=== PATIENT | female | born 1970 | race Caucasian/White ===

== ENCOUNTER 2017-05-24 09:38 | Emergency (ER) | payer OTHER ==
[~2017-05-24] VITALS: Ht 170.2 cm; Wt 104.3 kg
[~2017-05-24 09:38] MED LIST: ACIDOPHILUS1 EACH PO; AMITIZA8 MCG PO; APAP500 PO; BACTRIM DS TAB1 EACH PO; BENTYL 20 MG TA20 M1 PO; BENZONATATE100 MG PO; CELEBREX 200 M200 M1 PO; DEPAKOTE PO; EPIPEN 2-P0.3 MG/0.3 IM; ERYTHROMYCIN250 MG PO; FIORINAL 50-321 EACH PO; FLONASE 0.05%50 MCG; HYDROCODONE-AP1 EAC6 PO; IBUPROFEN 800800 M1 PO; INSULIN PUMP; INVOKANA100 MG PO; LAMICTAL XR100 MG PO; LAMICTAL XR200 MG PO; LITHIUM CARBON300 M7 PO; MEDROLDOSEPACK PO; NORCO 5-325 TA1 EACH PO; NOVOLOG100 UNIT/1 SUBQ; PRILOSEC 20 MG20 MG PO; SERTRALINE HCL50 MG PO; TESSALON PERLE100 MG PO; TRILEPTAL150 MG PO; UNICOMPLEX M TA1 TA1 PO; VENLAFAXIN37.5 MG/1 PER TUBE; VITAMIN D34000 UNIT PO; WELLBUTRIN SR200 MG PO; ZOFRAN ODT4 MG SUBLING; [UNRECOGNIZED DRUG - OTHER]; [UNRECOGNIZED DRUG - OTHER] PO
[2017-05-24] MEDS ORDERED: DEPAKOTE 250MG250 M1 PO (09:50)
[2017-05-24] MEDS ORDERED: VSL#3 CAPSULE1 EACH PO (09:50)
[2017-05-24] MEDS ORDERED: JARDIANCE10 MG PO (09:50)
[2017-05-24] MEDS ORDERED: ACCUNEB SO1.25 MG/1 INH (10:47)
[2017-05-24] MEDS ORDERED: NEBULIZER MISCELL (10:47)
[2017-05-24 10:59] LABS: INFLUENZA A ANTIGEN None Detected (None Detect)
[2017-05-24] MEDS ORDERED: ULTRAM 50MG TAB50 MG PO (11:10)
[2017-05-24] MEDS ORDERED: NAPROSYN500 MG PO (11:10)
[2017-05-24] MEDS ORDERED: Magic mouthwash PO (11:35)
[2017-05-24 11:38] VITALS: BP 114/75
== END 2017-05-24 11:39 | disposition home or self-care (01) ==
LOC: M.ERS 09:38
PROVIDERS: Personal Emergency Response Attendant
DX: J10.1 Influenza due to other identified influenza virus with other respiratory manifestations (principal); F32.9 Major depressive disorder, single episode, unspecified; E11.43 Type 2 diabetes mellitus with diabetic autonomic (poly)neuropathy; K31.84 Gastroparesis; Z79.4 Long term (current) use of insulin; Z90.49 Acquired absence of other specified parts of digestive tract; Z90.711 Acquired absence of uterus with remaining cervical stump; Z98.890 Other specified postprocedural states; Z91.041 Radiographic dye allergy status; Z88.8 Allergy status to other drugs, medicaments and biological substances; Z88.5 Allergy status to narcotic agent; Z91.013 Allergy to seafood

== ENCOUNTER → 2017-07-16 | Outpatient (CLI) | payer OTHER ==
[~2017-07-16] MED LIST changes: +ACCUNEB SO1.25 MG/1 INH; +DEPAKOTE 250MG250 M1 PO; +JARDIANCE10 MG PO; +Magic mouthwash PO; +NAPROSYN500 MG PO; +NEBULIZER MISCELL; +ULTRAM 50MG TAB50 MG PO; +VSL#3 CAPSULE1 EACH PO
== END ==
LOC: M.ULTRA 08:37
DX: R92.8 Other abnormal and inconclusive findings on diagnostic imaging of breast (principal); N63.31 Unspecified lump in axillary tail of the right breast

== ENCOUNTER → 2017-07-27 | Outpatient (CLI) | payer OTHER ==
--- NOTE | 2017-07-27 15:48 | EXE ---
[place] [address] STRESS ECHOCARDIOGRAM Name: KRISTEN DWYERELLE Rasheed Room: [facility]#: [id number] Admission: 07/27/17 Attend Phys: Daniela Parker, Discharge: Date of : 70 Date of Service: 07/27/17 1547 Report #: [id number] THIS REPORT FOR: //name// APPROVED REPORT Study performed: 07/27/2017 11:21:53 Exam: Stress Echocardiogram Indication: Dyspnea Patient Location: Out-Patient Stress Nurse: Radha Abreu RN Supervising Physician: Harrison Lovett MD Status: routine Ht: 5 ft 7 in HR: 100 bpm BP: 135/85 mmHg Medical History Cardiac Risk Factors: DM Procedure The patient underwent an Exercise Stress Test using the Krishna Protocol. Blood pressure, heart rate, and EKG were monitored. An Echocardiogram was performed by chemical production technician in four stages in quad fashion. At peak stress, four selected images were obtained and placed side by side with resting images for comparison. Stress Test Details Stress Test: Exercise stress testing was performed using a Krishna protocol. HR Resting HR: 100 bpm Max Heart Rate (APMHR): 173 bpm Max HR Achieved: 171 bpm Target HR (85% APMHR): 147 bpm % of APMHR: 98 Recovery HR: 115 bpm HR response to stress: Normal HR response to stress BP Resting BP: 135/85 mmHg Max BP: 180/85 mmHg Recovery BP: 123/62 mmHg ECG Resting ECG: Sinus Rhythm, normal EKG [place] [id number] STRESS ECHOCARDIOGRAM Name: DAVID DWYER Room: [facility]#: [id number] Admission: 07/27/17 Attend Phys: Daniela Parker, Discharge: Date of : 70 Date of Service: 07/27/17 1547 Report #: [id number] Stress ECG: Sinus Tachycardia ST Change: None Arrhythmia: None Recovery ECG: Sinus Rhythm, normal EKG Recovery ST Change: None Recovery Arrhythmia: None Clinical Reason for Termination: Dyspnea, Completed protocol Exercise duration: 5 min sec Highest Stage Achieved: Stage 2: 2.5 mph at 12% grade. Exercise capacity: 6.99 METs The patient had limited exercise capacity. The patient completed 5 minutes on the standard Krishna protocol. She achieved target heart rate and this time. Exercise was discontinued due to dyspnea. There was no chest pain. Stress ECG Conclusion The baseline 12-lead electrocardiogram shows sinus rhythm with no significant ST or T wave abnormality. EKGs obtained during and post exercise showed sinus rhythm and sinus tachycardia with no significant Mr. T wave changes when compared to baseline. There were no stress-induced arrhythmias. Pre-Stress Echo The resting Echocardiogram showed normal left ventricular contractility with an estimated Ejection Fraction of about 55-60%. Post-Stress Echo The stress Echocardiogram showed normal left ventricular contractility with an estimated Ejection Fraction of about >70%. Conclusion Clinical Response: Non-ischemic Exercise Capacity: Below Average Stress ECG Response: Non-ischemic Stress Echo Images: Non-ischemic Clinical response nonischemic. Echo response nonischemic. This is a low risk study. Other Information Study Quality: Adequate <Conclusion> [place] [address] STRESS ECHOCARDIOGRAM Name: DAVID DWYER Room: [facility]#: [id number] Admission: 07/27/17 Attend Phys: Daniela Parker, Discharge: Date of : 70 Date of Service: 07/27/17 154 Report #: [id number] Clinical response nonischemic. Echo response nonischemic. This is a low risk study. <ELECTRONICALLY SIGNED> By: Harrison Lovett MD, FACC 07/27/17 1547 154 46 Harrison Lovett MD, FACC /INF
== END ==
LOC: M.CRD 10:34
DX: R06.00 Dyspnea, unspecified (principal); E66.9 Obesity, unspecified; M79.604 Pain in right leg; M79.605 Pain in left leg

== ENCOUNTER → 2017-08-03 | Outpatient (CLI) | payer OTHER ==
--- NOTE | 2017-08-06 12:01 | SLEEP ---
[address] [address] SLEEP STUDY REPORT Name: KRISTEN DWYERELLE Rasheed Room: [facility]#: [id number] Admission: 08/03/17 Attend Phys: MIKE Morley Discharge: Date of : 70 Report #: [id number] THIS REPORT FOR: //name// CC: Ritchie Parker This study has been reviewed in its entirety by a board certified sleep specialist DATE OF SERVICE: 08/03/2017 SPLIT NIGHT POLYSOMNOGRAPHY REPORT REQUESTING PHYSICIAN: Sawyer Parker, nurse practitioner in the office of Dr. Ritchie Arias. A split night polysomnography was performed. Apparently, she has a documented history of obstructive sleep apnea, but is no longer on CPAP. Her weight is 230 pounds. She has an [place] sleepiness scale of 18/24. Has complaints of daytime sleepiness, which is excessive. Restless sleep. The total study time was 415 minutes and total sleep time was 361 minutes. Sleep efficiency overall was 87%. Diagnostic portion of the sleep study was 168 minutes, 143 minutes asleep. Sleep efficiency was 85%. During the diagnostic portion, 12% of the time was spent in REM sleep. During the diagnostic portion, there were total of 3 apneas noted, all of which were central. There were 23 hypopneas. This resulted in a total apnea-hypopnea index of 10.9. However, the apnea/hypopnea index was 14.5 during REM sleep. Sleep time was spent in primarily the supine and prone positions. During the diagnostic portion, she had a total of 56 periodic limb movements with 6 associated with an arousal. This resulted in a PLMS arousal index of 2.5. Lowest observed O2 saturation was 85%. With the abnormalities noted, a CPAP titration was undertaken. Starting pressure of 5 cm of water pressure. This was titrated up to 12 cm. An ending pressure of 12, her apnea-hypopnea index was 1.9. During the treatment portion, she continued to have large number of periodic limb movements was 63 noted, 7 with an arousal. IMPRESSION: 1. Split polysomnography study reveals moderate sleep apnea, also associated with increased periodic limb movements. Use of CPAP at pressure of 12 cm of water pressure appeared to be effective with marked decrease in the [address] [address] SLEEP STUDY REPORT Name: DAVID DWYER Room: [facility]#: [id number] Admission: 08/03/17 Attend Phys: MIKE Morley Discharge: Date of : 70 Report #: [id number] apnea/hypopnea index. Snoring was resolved as well. A ramp of 10 minutes was utilized with the CPAP as well as a C-Flex of 3. Small mask was utilized (Vicente FX Felicia). 2. Elevated body mass index. RECOMMENDATIONS: Would utilize CPAP at above settings. If sleep complaints persist, consider addressing underlying periodic limb movement disorder. <ELECTRONICALLY SIGNED> By: Zainab Wren MD 08/06/17 1201 1009 [id number] Wren MD /nt
== END ==
LOC: M.SLEEPLAB 07-26 21:00
DX: G47.30 Sleep apnea, unspecified (principal); E10.8 Type 1 diabetes mellitus with unspecified complications; E66.9 Obesity, unspecified; F41.8 Other specified anxiety disorders; G89.29 Other chronic pain

== ENCOUNTER 2018-02-25 17:42 | Emergency (ER) | payer OTHER ==
[~2018-02-25] VITALS: Ht 170.2 cm; Wt 104.3 kg
[2018-02-25] MEDS ORDERED: WELLBUTRIN 100100 MG PO (17:54)
[2018-02-25] MEDS ORDERED: ZYRTEC10 M5 PO (17:54)
[2018-02-25 18:27] LABS: INFLUENZA A ANTIGEN None Detected (None Detect); INFLUENZA B ANTIGEN None Detected (None Detect)
[2018-02-25] MEDS ORDERED: ULTRAM 50MG TAB50 MG PO (18:32)
[2018-02-25] MEDS ORDERED: PREDNISONE 10 M10 M1 PO (18:32)
[2018-02-25] MEDS ORDERED: ZPAK PO (18:32)
[2018-02-25 19:12] VITALS: BP 129/74
== END 2018-02-25 19:12 | disposition home or self-care (01) ==
LOC: M.ERS 17:42
PROVIDERS: Nurse Practitioner
DX: J03.90 Acute tonsillitis, unspecified (principal); E11.9 Type 2 diabetes mellitus without complications; F32.9 Major depressive disorder, single episode, unspecified; Z91.041 Radiographic dye allergy status; Z88.5 Allergy status to narcotic agent; Z88.8 Allergy status to other drugs, medicaments and biological substances; Z91.013 Allergy to seafood; Z90.49 Acquired absence of other specified parts of digestive tract; Z90.711 Acquired absence of uterus with remaining cervical stump

== ENCOUNTER → 2018-04-29 | Outpatient (CLI) | payer OTHER ==
[~2018-04-29] MED LIST changes: +PREDNISONE 10 M10 M1 PO; +WELLBUTRIN 100100 MG PO; +ZPAK PO; +ZYRTEC10 M5 PO
== END ==
LOC: M.CT 11:11
DX: R20.2 Paresthesia of skin (principal); R20.0 Anesthesia of skin; M62.838 Other muscle spasm

== ENCOUNTER → 2018-07-08 | Outpatient (CLI) | payer OTHER ==
[2018-07-08 14:03] LABS: ABSOLUTE EOSINOPHILS 0.1 thou/uL (0.0-0.7); ABSOLUTE MONOCYTES 0.4 thou/uL (0.0-1.2); ABSOLUTE NEUTROPHILS 4.2 thou/uL (1.6-8.1); BASOPHILS 0.6 %; EOSINOPHILS 1.9 %; MCHC 33.3 g/dL (28.0-37.0); MCV 90.1 fL (80.0-100.0); MONOCYTES 5.9 %; MPV 8.7 fl. (7.2-11.1); NUCLEATED RBCS 0 /100WBC; PLATELET COUNT* 285 thou/uL (150-400); POLYS 61.6 %; RBC 4.67 mil/uL (4.20-5.00); RDW-CV 13.5 % (10.5-14.5); WBC 6.7 thou/uL (4.0-11.0)
[2018-07-08 14:22] LABS: ALBUMIN 3.4 g/dL (3.4-5.0); CALCIUM 8.9 mg/dL (8.5-10.1); CREATININE 0.8 mg/dL (0.6-1.3); POTASSIUM 3.9 mmol/L (3.5-5.1); TOTAL BILIRUBIN 0.3 mg/dL (<0.1-1.0); TOTAL PROTEIN 7.4 g/dL (6.4-8.2)
[2018-07-09 02:10] LABS: GLYCOHEMOGLOBIN (HGB A1C) 9.8 % (4.8-5.6)
== END ==
LOC: M.LAB 13:36
PROVIDERS: Nurse Practitioner
DX: E66.9 Obesity, unspecified (principal); E11.43 Type 2 diabetes mellitus with diabetic autonomic (poly)neuropathy; K31.84 Gastroparesis; R11.0 Nausea; Z68.39 Body mass index [BMI] 39.0-39.9, adult

== ENCOUNTER 2018-09-18 15:15 | Emergency (ER) | payer OTHER ==
[~2018-09-18] VITALS: Ht 170.2 cm; Wt 104.3 kg
[2018-09-18] MEDS ORDERED: TRULANCE3 MG PO (15:29)
[2018-09-18] MEDS ORDERED: OMEPRAZOLE10 MG PO (15:30)
[2018-09-18] MEDS ORDERED: ONDANSETRON HCL4 M2 PO (15:30)
[2018-09-18] MEDS ORDERED: JARDIANCE25 MG PO (15:30)
[2018-09-18] MEDS ORDERED: FLONASE 0.05%50 MCG NASAL (15:31)
[2018-09-18] MEDS ORDERED: NABUMETONE 500500 M1 PO (15:31)
[2018-09-18] MEDS ORDERED: PROAIR HFA8.5 GM INH (16:31)
[2018-09-18] MEDS ORDERED: LEVAQUIN 500 M500 M2 PO (16:31)
[2018-09-18] MEDS ORDERED: PROMETHAZINE V120 ML PO (16:31)
[2018-09-18] MEDS ORDERED: TESSALON PERLE100 MG PO (16:31)
[2018-09-18] MEDS ORDERED: ACETAMINOPHEN-1 EAC1 PO (16:31)
[2018-09-18] MEDS ORDERED: PREDNISONE 20 M20 MG PO (16:31)
[2018-09-18 16:47] VITALS: BP 154/73
== END 2018-09-18 16:49 | disposition home or self-care (01) ==
LOC: M.ERS 15:15
DX: J20.9 Acute bronchitis, unspecified (principal); J30.9 Allergic rhinitis, unspecified; F32.9 Major depressive disorder, single episode, unspecified; E11.43 Type 2 diabetes mellitus with diabetic autonomic (poly)neuropathy; K31.84 Gastroparesis; Z79.4 Long term (current) use of insulin; Z91.041 Radiographic dye allergy status; Z88.5 Allergy status to narcotic agent; Z88.8 Allergy status to other drugs, medicaments and biological substances; Z91.013 Allergy to seafood; Z90.49 Acquired absence of other specified parts of digestive tract; Z90.711 Acquired absence of uterus with remaining cervical stump

== ENCOUNTER 2018-09-19 00:52 | Emergency (ER) | payer OTHER ==
[~2018-09-19] VITALS: Ht 170.2 cm; Wt 102.5 kg
[~2018-09-19 00:52] MED LIST changes: +ACETAMINOPHEN-1 EAC1 PO; +FLONASE 0.05%50 MCG NASAL; +JARDIANCE25 MG PO; +LEVAQUIN 500 M500 M2 PO; +NABUMETONE 500500 M1 PO; +OMEPRAZOLE10 MG PO; +ONDANSETRON HCL4 M2 PO; +PREDNISONE 20 M20 MG PO; +PROAIR HFA8.5 GM INH; +PROMETHAZINE V120 ML PO; +TRULANCE3 MG PO
[2018-09-19 01:54] VITALS: BP 154/83
[2018-09-20] MEDS ORDERED: PREDNISONE 20 M20 M1 PO (02:03)
== END 2018-09-19 01:55 | disposition home or self-care (01) ==
LOC: M.ERS 00:52
DX: L53.9 Erythematous condition, unspecified (principal); R21 Rash and other nonspecific skin eruption; T36.8X5A Adverse effect of other systemic antibiotics, initial encounter; F32.9 Major depressive disorder, single episode, unspecified; E11.43 Type 2 diabetes mellitus with diabetic autonomic (poly)neuropathy; K31.84 Gastroparesis; Z88.8 Allergy status to other drugs, medicaments and biological substances; Z91.041 Radiographic dye allergy status; Z91.013 Allergy to seafood; Z90.49 Acquired absence of other specified parts of digestive tract; Z90.711 Acquired absence of uterus with remaining cervical stump; Y92.89 Other specified places as the place of occurrence of the external cause

== ENCOUNTER 2018-09-20 01:42 | Emergency (ER) | payer OTHER ==
[~2018-09-20] VITALS: Ht 170.2 cm; Wt 104.3 kg
[2018-09-20] MEDS ORDERED: PREDNISONE 20 M20 M1 PO (02:03)
[2018-09-20 02:12] VITALS: BP 170/92
== END 2018-09-20 02:13 | disposition home or self-care (01) ==
LOC: M.ERS 01:42
DX: L50.9 Urticaria, unspecified (principal); T36.8X5A Adverse effect of other systemic antibiotics, initial encounter; E11.43 Type 2 diabetes mellitus with diabetic autonomic (poly)neuropathy; K31.84 Gastroparesis; F32.9 Major depressive disorder, single episode, unspecified; Z79.4 Long term (current) use of insulin; Z88.8 Allergy status to other drugs, medicaments and biological substances; Z91.041 Radiographic dye allergy status; Z91.013 Allergy to seafood; Z90.49 Acquired absence of other specified parts of digestive tract; Z90.711 Acquired absence of uterus with remaining cervical stump; Y92.89 Other specified places as the place of occurrence of the external cause

== ENCOUNTER 2018-09-20 18:01 | Emergency (ER) | payer OTHER ==
[~2018-09-20] VITALS: Ht 170.2 cm; Wt 104.3 kg
[~2018-09-20 18:01] MED LIST changes: +PREDNISONE 20 M20 M1 PO
[2018-09-20 19:01] LABS: HEMATOCRIT 45.5 % (37.0-47.0); HEMOGLOBIN 14.8 gm/dL (12.0-15.0); MCH 30.1 pg (26.0-34.0); MCHC 32.6 g/dL (28.0-37.0); MCV 92.5 fL (80.0-100.0); MPV 9.3 fl. (7.2-11.1); NUCLEATED RBCS 0 /100WBC; PLATELET COUNT* 355 thou/uL (150-400); RBC 4.91 mil/uL (4.20-5.00); RDW-CV 13.7 % (10.5-14.5); WBC 13.8 thou/uL (4.0-11.0)
[2018-09-20 19:06] LABS: ANION GAP 19 mmol/L (7-16); BUN 26 mg/dL (7-18); CALCIUM 9.4 mg/dL (8.5-10.1); CHLORIDE 96 mmol/L (98-107); CO2 18 mmol/L (21-32); CREATININE 1.2 mg/dL (0.6-1.3); GLUCOSE 466 mg/dL (70-99); POTASSIUM 4.9 mmol/L (3.5-5.1); SODIUM 133 mmol/L (136-145)
[2018-09-20 19:16] LABS: APTT 28.9 Seconds (25.0-31.3); INR 0.9; PROTIME 9.7 Seconds (9.20-11.50)
[2018-09-20 19:23] LABS: ALBUMIN 3.9 g/dL (3.4-5.0); ALKALINE PHOSPHATASE 124 U/L (46-116); LIPASE 57 U/L (73-393); NT-PRO BRAIN NAT PEPTIDE 128 pg/mL (<300); SGOT 17 U/L (15-37); SGPT 31 U/L (30-65); TOTAL BILIRUBIN 0.5 mg/dL (<0.1-1.0); TOTAL PROTEIN 8.5 g/dL (6.4-8.2); TROPONIN-I LEVEL <0.06 ng/mL (<0.06)
[2018-09-20 20:17] LABS: ABSOLUTE LYMPHOCYTES 1.4 thou/uL (0.8-5.3); ABSOLUTE MONOCYTES 0.1 thou/uL (0.0-1.2); ABSOLUTE NEUTROPHILS 12.3 thou/uL (1.6-8.1)
[2018-09-20 20:18] LABS: GIANT PLATELETS OCCASIONAL; PLATELET ESTIMATE ADEQUATE
[2018-09-20 20:57] VITALS: BP 115/57
--- NOTE | 2018-09-21 10:28 | EKG ---
[place] [address] ELECTROCARDIOGRAM REPORT Name: DAVID DWYER [id number] Admission: 09/20/18 Attend Phys: Discharge: 09/20/18 Date of : 70 Report #: [id number] THIS REPORT FOR: //name// [facility] ED Test Date: 2018-09-20 Test Time: 18:07:46 Pat Name: DAVID DWYER Department: Room: Gender: F Baker Doughnut: 16 : 1970 Requested By: Zenaida Brown Order Number: [id number] MD: Ritchie Okeefe Measurements Intervals [place] Rate: 116 P: 68 ID: [id number] QRS: 20 QRSD: 82 T: 28 QT: 316 QTc: 439 Interpretive Statements Sinus tachycardia Consider anterior infarct Baseline wander in lead(s) V4,V5 Compared to ECG 06/05/2015 07:52:34 Sinus rhythm no longer present Electronically Signed On 09-21-2018 10:28:17 CDT by Ritchie Okeefe [email or web address] <ELECTRONICALLY SIGNED> By: Ritchie Okeefe MD, [facility] 09/21/18 1028 180 180 Ritchie Okeefe MD, [facility] /EPI
== END 2018-09-20 20:58 | disposition home or self-care (01) ==
LOC: M.ERS 18:01
PROVIDERS: Personal Emergency Response Attendant
DX: R00.2 Palpitations (principal); R00.0 Tachycardia, unspecified; E10.65 Type 1 diabetes mellitus with hyperglycemia; F32.9 Major depressive disorder, single episode, unspecified; E10.43 Type 1 diabetes mellitus with diabetic autonomic (poly)neuropathy; K31.84 Gastroparesis; Z91.041 Radiographic dye allergy status; Z88.5 Allergy status to narcotic agent; Z90.49 Acquired absence of other specified parts of digestive tract; Z90.711 Acquired absence of uterus with remaining cervical stump; Z91.013 Allergy to seafood

== ENCOUNTER 2018-09-23 10:46 | Inpatient (IN) | payer OTHER ==
[~2018-09-23] VITALS: Ht 170.2 cm; Wt 104.0 kg
[2018-09-23 10:54] VITALS: BP 163/94
[2018-09-23 11:49] LABS: ABSOLUTE BASOPHILS 0.1 thou/uL (0.0-0.2); ABSOLUTE EOSINOPHILS 0.1 thou/uL (0.0-0.7); ABSOLUTE LYMPHOCYTES 2.5 thou/uL (0.8-5.3); ABSOLUTE MONOCYTES 0.4 thou/uL (0.0-1.2); ABSOLUTE NEUTROPHILS 4.4 thou/uL (1.6-8.1); BASOPHILS 1.4 %; EOSINOPHILS 1.7 %; HEMATOCRIT 46.5 % (37.0-47.0); HEMOGLOBIN 15.6 gm/dL (12.0-15.0); LYMPHOCYTES 32.7 %; MCH 29.8 pg (26.0-34.0); MCHC 33.6 g/dL (28.0-37.0); MCV 88.8 fL (80.0-100.0); MONOCYTES 5.4 %; MPV 8.5 fl. (7.2-11.1); NUCLEATED RBCS 0 /100WBC; PLATELET COUNT* 350 thou/uL (150-400); POLYS 58.8 %; RBC 5.24 mil/uL (4.20-5.00); RDW-CV 13.3 % (10.5-14.5); WBC 7.5 thou/uL (4.0-11.0)
[2018-09-23 11:57] LABS: ANION GAP 10 mmol/L (7-16); BUN 9 mg/dL (7-18); CALCIUM 9.2 mg/dL (8.5-10.1); CHLORIDE 107 mmol/L (98-107); CO2 27 mmol/L (21-32); CREATININE 0.7 mg/dL (0.6-1.3); GLUCOSE 177 mg/dL (70-99); POTASSIUM 3.4 mmol/L (3.5-5.1); SODIUM 144 mmol/L (136-145)
[2018-09-23 12:00] LABS: APTT 28.1 Seconds (25.0-31.3)
[2018-09-23 12:12] LABS: ALBUMIN 3.5 g/dL (3.4-5.0); ALKALINE PHOSPHATASE 104 U/L (46-116); LIPASE 83 U/L (73-393); NT-PRO BRAIN NAT PEPTIDE 87 pg/mL (<300); SGOT 15 U/L (15-37); SGPT 27 U/L (30-65); TOTAL BILIRUBIN 0.6 mg/dL (<0.1-1.0); TOTAL PROTEIN 7.8 g/dL (6.4-8.2); TROPONIN-I LEVEL <0.06 ng/mL (<0.06)
--- NOTE | 2018-09-23 14:07 | EKG ---
[place] [address] ELECTROCARDIOGRAM REPORT Name: DAVID DWYER Room: [place] [address] ADM IN [facility].#: [id number] Admission: 09/23/18 Attend Phys: Rasheed Ryan Discharge: Date of : 70 Report #: [id number] THIS REPORT FOR: //name// [facility] ED Test Date: 2018-09-23 Test Time: 10:56:20 Pat Name: DAVID DWYER Department: Room: [facility] Gender: F Relish Blender: : 1970 Requested By: Yokasta Thomas Order Number: [id number] MD: Ritchie Okeefe Measurements Intervals [place] Rate: 105 P: 64 WI: 158 QRS: 0 QRSD: 101 T: 35 QT: 380 QTc: 503 Interpretive Statements Sinus tachycardia Probable left atrial enlargement Low voltage, extremity and precordial leads Consider anterior infarct Prolonged QT interval Compared to ECG 09/20/2018 18:07:46 Low QRS voltage now present Prolonged QT interval now present Myocardial infarct finding still present Electronically Signed On 09-23-2018 14:06:59 CDT by Ritchie Okeefe [email or web address] <ELECTRONICALLY SIGNED> By: Ritchie Okeefe MD, [facility] 09/23/18 1406 1056 1056 Ritchie Okeefe MD, [facility] /EPI
[2018-09-23 15:29] VITALS: BP 148/68
[2018-09-23 16:00] VITALS: BP 152/82
--- NOTE | 2018-09-23 17:36 | NUR ---
ASSUMED PT CARE AT 1600. RECEIVED REPORT FROM ER. GET SITUATED TO ROOM. AOX4, UP SBA, O2 SAT 90'S 2L NC. TELE IN PLACE, TRACING SINUS TACH ON THE MONITOR. PT DENIES PAIN. PT FOR ACCU CHECK, HAS INSULIN PUMP. PT LUNG SOUND COARSE, LAST BM TODAY. ON CARB CONTROL DIET. ADMISSION ASSESSMENT CHARTED. RECONCILED MEDS. VSS, CALL LIGHT WITHIN REACH. WILL CONTINUE TO MONITOR.
[2018-09-23] MEDS ORDERED: TESSALON PERLE100 MG PO (17:58)
[2018-09-23 20:00] VITALS: BP 129/75
[2018-09-24] VITALS (9 sets, daily range): BP systolic 112–160; BP diastolic 63–82
[2018-09-24 04:54] LABS: HEMATOCRIT 39.4 % (37.0-47.0); MCH 29.2 pg (26.0-34.0); MCHC 32.6 g/dL (28.0-37.0); MCV 89.6 fL (80.0-100.0); MPV 8.5 fl. (7.2-11.1); RBC 4.4 mil/uL (4.20-5.00); RDW-CV 13.5 % (10.5-14.5); WBC 6.8 thou/uL (4.0-11.0)
[2018-09-24 05:01] LABS: ALBUMIN 2.7 g/dL (3.4-5.0); CALCIUM 8.4 mg/dL (8.5-10.1); CREATININE 0.7 mg/dL (0.6-1.3); POTASSIUM 3.5 mmol/L (3.5-5.1); TOTAL BILIRUBIN 0.3 mg/dL (<0.1-1.0); TOTAL PROTEIN 5.9 g/dL (6.4-8.2)
[2018-09-24 05:05] LABS: HEMOGLOBIN 12.9 gm/dL (12.0-15.0)
--- NOTE | 2018-09-24 09:48 | NUR ---
ASSUMED PT CARE AT 0800. AOX4, UP AD MILES, O2 SAT 90'S 2L NC. DENIES PAIN. TRACING SR IN TELE. LUNG SOUND COARSE. LAST BM 09/23/18. PT FOR ACCU CHECK, HAS INSULIN PUMP. PT ORTHOSTATIC BP TAKEN. VSS, AM ASSESSMENT CHARTED. MEDS GIVEN PER MAR. HOURLY ROUNDING. WILL CONTINUE TO MONITOR.
[2018-09-25] VITALS: BP 131/75
[2018-09-25 04:00] VITALS: BP 106/40
--- NOTE | 2018-09-25 06:44 | NUR ---
PT ALERT ORIENTED. UP AD MILES TO BR. IVF INFUSING. TYLENOL GIVEN LAST NIGHT FOR HEAD ACHE PAIN. PT STATED SHE IS HAVING CAFFINE WITHDRAW. PT OFFERED CAFFINATED BEVERAGE. PT IS DRINKING DR PEPPER BROUGHT IN BY FAMILY. TELEMETRY SHOWS SR.
[2018-09-25 08:00] VITALS: BP 121/58
--- NOTE | 2018-09-25 10:13 | CON ---
[address] [address] CONSULTATION Name: DAVID DWYER Room: [address] IN [facility]#: [id number] Admission: 09/23/18 Attend Phys: Rasheed Ryan Discharge: Date of : 70 Report #: [id number] THIS REPORT FOR: //name// CC: Jhonatan Alegria DO NEUROLOGY CONSULTATION HISTORY OF PRESENT ILLNESS: The patient is a 48-year-old female who has made several visits to the Emergency Room and was finally admitted yesterday. The patient states that she has been fighting an upper respiratory tract infection for 3 weeks. Even today, she is not feeling better. The patient came to the Emergency Room on the , the and the . When she came in on the day of admission, she complained of near syncope. She described this as a lightheaded feeling. The Emergency Room note states that she described the room spinning; however, the patient denied this to me. She states that she has never had a spinning sensation. She has no ear pain. She has no ringing in her ears. The patient has had diabetes for 40 years and has an insulin pump. In the hospital, her blood sugar has been running below 150, which she states makes her feel hypoglycemic. The patient states that she has also been checking her heart rate and her heart rate has been in the 150s. PAST MEDICAL HISTORY: Diabetes, depression, gastroesophageal reflux, environmental allergies. PAST SURGICAL HISTORY: Uterine ablation, appendectomy, cholecystectomy, partial hysterectomy. MEDICATIONS: Insulin pump, Tessalon Perles 100 mg t.i.d., bupropion 100 mg b.i.d., cetirizine 10 mg daily, Trulance 3 mg daily, Jardiance 25 mg daily, omeprazole 10 mg daily, nabumetone 1000 mg b.i.d., fluticasone nasal spray. ALLERGIES: GUAIFENESIN, CHLORPHENIRAMINE, CONTRAST DYE, HYDROCODONE, IODINE, SHELLFISH. PHYSICAL EXAMINATION: VITAL SIGNS: Temperature is 36.6, pulse rate 85, respiratory rate 17, blood pressure 124/69, bedside pulse oximetry 100% on 2 liters. NEUROLOGIC: Cranial nerves 2-12 are grossly intact. Motor exam demonstrates symmetrical strength in all 4 extremities with tone and bulk normal. Reflexes are trace throughout. Plantar responses are flexor. Coordination reveals intact [id number]. [place] [address] CONSULTATION Name: DAVID DWYER Room: [address]#: [id number] Admission: 09/23/18 Attend Phys: Rasheed Ryan Discharge: Date of : 70 Report #: [id number] LABORATORY DATA: Hematology: White blood cell count 6.8, hemoglobin 12.9, hematocrit 39.4. Chemistry: Sodium 148, potassium 3.5, chloride 113, carbon dioxide 28, BUN 11, creatinine 0.7, glucose 203. Liver functions are normal. IMAGING: CT scan of the head demonstrates acute pansinusitis. Chest x-ray demonstrates no acute chest process. IMPRESSION: I have asked the nurse to do orthostatic blood pressures. The patient was with the understanding that these have been done; however, they are not documented under the vital signs or the nurse's notes, so the nurse will do them this morning. The patient does not have vertigo. She describes lightheadedness, which is most likely multifactorial in origin. If the patient is orthostatic, she will require hydration. Interestingly, her heart rate has been relatively normal here in the hospital. However, if her heart rate becomes elevated, I would recommend a Cardiology consult for that. Beyond that, I have no further recommendations. <ELECTRONICALLY SIGNED> By: Ryann Alcazar DO 09/25/18 1013 0935 1030Ryann Alcazar DO /nt
--- NOTE | 2018-09-25 11:26 | NUR ---
ASSUMED PT CARE AT 0800, AOX4, UP AD MILES, O2 SAT 90'S RA. TRACING SR ON TELE. PT COMPLAINS OF PAIN. MEDS GIVEN. IV ACCESS INTACT. ANTIBIOTIC, NS RUNNING. FOR ACCU CHECK. HAS INSULIN PUMP. VSS, AM ASSESSMENT CHARTED. HOURLY ROUNDING. CALL LIGHT WITHIN REACH. WILL CONTINUE TO MONITOR.
[2018-09-25 11:39] VITALS: BP 128/63
[2018-09-25 15:48] VITALS: BP 128/69
[2018-09-26] VITALS: BP 135/78
[2018-09-26 04:00] VITALS: BP 105/58
--- NOTE | 2018-09-26 05:53 | NUR ---
PATIENT SLEPT MOST OF THE NIGHT. PATIENT WAS GIVEN PAIN MEDICINE TWICE FOR A HEADACHE. IV REMAINS SALINE LOCKED. PATIENT IS POSSIBLY GOING HOME TODAY. WILL CONTINUE TO MONITOR.
[2018-09-26 12:00] VITALS: BP 110/57
--- NOTE | 2018-09-26 16:51 | NUR ---
ASSUMED PT CARE AT 0700, PT A&O X4, UP AD MILES, ASSESSMENT CHARTED. PT WAS RECEIVING IV DOXY, PTS LEFT HAND AND ARM BEGAN TO SWELL FROM ELBOW DOWN TO FINGERTIPS. IV MEDS IMMEDIATELY DISCONTINUED AND US PERFORMED, NEG FOR DVT. IV REMOVED, PT TRANSFERRED TO [facility] D/T MED SURG STATUS. REPORT CALLED AND GIVEN TO MERYL HARPER. HOURLY ROUNDING COMPLETED.
--- NOTE | 2018-09-26 17:42 | NUR ---
PT ARRIVED TO UNIT ABOUT 1700 FROM TELE. PT STABLE. NO IV. ACCU CHECK. UP AD MILES. PAIN CONTROLLED WITH PERCOCET. DENIED N/V. CALL LIGHT WITHIN REACH. WILL CONTINUE TO MONITOR.
[2018-09-26 19:40] VITALS: BP 153/75
--- NOTE | 2018-09-27 05:02 | NUR ---
PATIENT HAS REMAINED ALERT AND ORIENTED X 4 THROUGHOUT THE SHIFT AND RESTING AT INTERVALS. WHEN FOUND ON HOURLY ROUNDS AWAKE AT 0100 PATIENT STATES SHE WAS AFRAID TO FALL ASLEEP DUE THE SUPERFICIAL CLOT FOUND IN HER ARM YESTERDAY. SHE STATES THAT SHE WAS TOLD THESE TYPES OF CLOTS DO NOT USUALLY CAUSE ANY HARM. BUT, SINCE SHE IS NOT TYPICAL, IT WORRIES HER. REASSURANCE ABLE PROVIDED INCLUDING THAT THIS NURSE WOULD MAKE MAKE FREQUENT ROUNDS TO CHECK ON HER WELFARE. SHE RESPONDED THAT HOURLY ROUNDS WERE ADEQUATE AND THEY WOULD BE APPRECIATED. ALSO SPOKE WITH ON-CALL PHYSICIAN THIS PAST EVENING REGARDING IV ORDERS. PATIENT ARRIVED TO [facility] WITHOUT AN IV. PATIENT WAS TOLD, SHE SAYS, BY SOMEONE, THAT SHE SHOULD NOT HAVE ANYMORE IV'S AT THIS TIME R/T THE THROMBUS FOUND 09/26/18 AND THAT HER MEDS WERE GOING TO BE CHANGED TO PO. THERE WAS NO DOCUMENTATION TO SUPPORT THIS BUT ORDER WAS RECEIVED FOR THE ANTIBIOTICS TO BE GIVEN PO AND FURTHER CONCERNS TO BE ADDRESSED BY ROUNDING PHYSICIAN TODAY. STARTED PRN FLONASE AND IMITREX AT HS TO GOOD EFFECT. PRIOR TO PATIENT FINALLY GETTING TO SLEEP SHE STATES HER HEADACHE HAD RESOLVED. VITAL SIGNS STABLE. PATIENT UP IN ROOM INDEPENDENTLY. CONTINUE TO MONITOR.
[2018-09-27 07:30] VITALS: BP 126/72
[2018-09-27] MEDS ORDERED: XANAX 0.25 MG0.25 MG PO ×2 (10:44)
[2018-09-27] MEDS ORDERED: DOXYCYCLINE 10100 MG PO ×2 (10:44)
[2018-09-27] MEDS ORDERED: IMITREX100 MG PO ×2 (10:44)
[2018-09-27] MEDS ORDERED: PREDNISONE 10 M10 MG PO ×2 (10:44)
[2018-09-27] MEDS ORDERED: PERCOCET PO ×2 (10:44)
[2018-09-27 12:30] VITALS: BP 126/72
--- NOTE | 2018-09-27 16:57 | NUR ---
ASSUMED CARE OF PATIENT AT APPROX M0730. ALERT AND ORIENTED X4. ASSESSMENT COMPLETED AND CHARTED. VSS ON ROOM AIR. NO COMPLAINTS OF NAUSEA OR SOA. COMPLAINT OF HEADACHE MANAGED WITH IMMITREX. PATIENT DISCHARGED AT 1415 WITH ALL PERSONAL BELONGINGS, PRESCRIPTIONS AND DISCHARGE INFORMATION.
== END 2018-09-27 14:15 | disposition home or self-care (01) | DRG 153 ==
LOC: M.ERS 10:46 → M.TBA-ER 13:39 → M.2W 15:43 → M.ORTHSURG 09-26 16:46
PROVIDERS: Nurse Practitioner Family; ADMIT Internal Medicine
DX: J01.40 Acute pansinusitis, unspecified (principal); E11.9 Type 2 diabetes mellitus without complications; F32.9 Major depressive disorder, single episode, unspecified; K21.9 Gastro-esophageal reflux disease without esophagitis; J20.9 Acute bronchitis, unspecified; Z90.49 Acquired absence of other specified parts of digestive tract; Z90.711 Acquired absence of uterus with remaining cervical stump; Z88.6 Allergy status to analgesic agent; Z88.8 Allergy status to other drugs, medicaments and biological substances; Z91.041 Radiographic dye allergy status; Z91.013 Allergy to seafood; Z79.899 Other long term (current) drug therapy; Z79.4 Long term (current) use of insulin

== ENCOUNTER 2018-12-19 17:54 | Emergency (ER) | payer OTHER ==
[~2018-12-19] VITALS: Ht 170.2 cm; Wt 104.3 kg
[~2018-12-19 17:54] MED LIST changes: +DOXYCYCLINE 10100 MG PO; +IMITREX100 MG PO; +PERCOCET PO; +PREDNISONE 10 M10 MG PO; +XANAX 0.25 MG0.25 MG PO
[2018-12-19] MEDS ORDERED: CIPROFLOXIN HC2.5 M1 OTIC (18:34)
[2018-12-19 19:01] VITALS: BP 151/88
== END 2018-12-19 19:02 | disposition home or self-care (01) ==
LOC: M.ERS 17:54
DX: H10.9 Unspecified conjunctivitis (principal); F32.9 Major depressive disorder, single episode, unspecified; E11.9 Type 2 diabetes mellitus without complications; Z88.8 Allergy status to other drugs, medicaments and biological substances; Z91.041 Radiographic dye allergy status; Z91.013 Allergy to seafood; Z90.49 Acquired absence of other specified parts of digestive tract; Z90.711 Acquired absence of uterus with remaining cervical stump; Z79.4 Long term (current) use of insulin

== ENCOUNTER → 2019-02-08 | Outpatient (CLI) | payer OTHER ==
[~2019-02-08] MED LIST changes: +CIPROFLOXIN HC2.5 M1 OTIC
== END ==
LOC: M.RAD 09:38
DX: M54.40 Lumbago with sciatica, unspecified side (principal)

== ENCOUNTER → 2019-02-27 | Outpatient (CLI) | payer OTHER | LOC: M.MRI 02-22 07:30 | DX: M54.40 Lumbago with sciatica, unspecified side (principal); M51.27 Other intervertebral disc displacement, lumbosacral region ==

== ENCOUNTER 2019-03-21 17:48 | Emergency (ER) | payer OTHER ==
[~2019-03-21] VITALS: Ht 170.2 cm; Wt 104.3 kg
[2019-03-21] MEDS ORDERED: TRAMADOL 50 MG50 MG PO (18:11)
[2019-03-21 18:59] LABS: INFLUENZA A ANTIGEN Negative (Negative); INFLUENZA B ANTIGEN Negative (Negative)
[2019-03-21] MEDS ORDERED: PREDNISONE50 MG PO (19:45)
[2019-03-21] MEDS ORDERED: HYDROCODON-ACE1 EAC8 PO (19:46)
[2019-03-21 19:56] VITALS: BP 142/64
== END 2019-03-21 19:56 | disposition home or self-care (01) ==
LOC: M.ERS 17:48
PROVIDERS: Nurse Practitioner Family
DX: R09.81 Nasal congestion (principal); J32.1 Chronic frontal sinusitis; J32.0 Chronic maxillary sinusitis; E11.43 Type 2 diabetes mellitus with diabetic autonomic (poly)neuropathy; K31.84 Gastroparesis; E11.9 Type 2 diabetes mellitus without complications; Z79.4 Long term (current) use of insulin; Z88.0 Allergy status to penicillin; Z90.711 Acquired absence of uterus with remaining cervical stump; Z91.041 Radiographic dye allergy status; Z88.8 Allergy status to other drugs, medicaments and biological substances; Z91.013 Allergy to seafood; Z90.49 Acquired absence of other specified parts of digestive tract

== ENCOUNTER → 2019-06-01 | Outpatient (CLI) | payer OTHER ==
[~2019-06-01] MED LIST changes: +AMITRIPTYLINE H10 M3 PO; +DICYCLOMINE PO; +HUMALOG100 UNIT/1 SUBQ; +HYDROCODON-ACE1 EAC8 PO; +NEURONTIN 300300 M1 PO; +PREDNISONE50 MG PO; +TRAMADOL 50 MG50 MG PO; +erythromycin PO
--- NOTE | 2019-06-09 09:01 | PAINCON ---
[facility] [address] [place] [address] PAIN MANAGEMENT CONSULTATION Name: DAVID DWYER Room: [facility] Charla#: [id number] Admission: 06/01/19 Attend Phys: Daisha Menchaca MD Discharge: Date of : 70 Report #: [id number] THIS REPORT FOR: //name// cc: Jhonatan Montgomery Gregg R. DO ~ THIS REPORT FOR: //name// CC: Jhonatan Menchaca DATE OF SERVICE: 06/01/2019 CHIEF COMPLAINT: Low back pain. HISTORY: The patient is a 49-year-old female who has been referred to the pain clinic. The patient states that she has pain in her low back area. Pain is worse with walking. Notes that pain is problematic when she is standing. It involves both legs. It radiates down into her calves and into her ankles. Does have some pain in the middle of her back. Rates her pain as an 8/10. Notes the pain being problematic for about 3 years. Notes that her pain is worse when she is on her feet. Pain improves when she is sitting or lying down. Described as constant, burning, shooting, cramping, aching, throbbing and stabbing. Rates it overall today as a 9/10. The patient has had some pain that is in the low back area that radiates straight down the posterior portion of her right leg to the calf, and down into her foot and ankle. She has tried nonsteroidal anti-inflammatory medications. ALLERGIES: ROBITUSSIN, PENICILLINS, CHLORPHENIRAMINE, IODINE CONTRAST, SHELLFISH. PAST MEDICAL HISTORY: Diabetes, gastroparesis, depression. PAST SURGICAL HISTORY: Uterine ablation 2011, appendectomy, cholecystectomy, partial hysterectomy. CURRENT MEDICATIONS: Wellbutrin 100 mg b.i.d., Zyrtec 10 mg, EpiPen 0.3 mg intramuscular, insulin as prescribed subcutaneous, Zoloft ____ p.r.n., dicyclomine 100 mg b.i.d., erythromycin 200 mg b.i.d., insulin pump sliding scale. REVIEW OF SYSTEMS: Fatigue, weakness, headaches, wears glasses, chronic sinus problems, shortness of breath with walking, nausea and vomiting, abdominal pain, weakness of muscles and joints, muscle pain, cramps, back pain, difficulty walking, numbness and tingling sensation, memory loss, confusion, depression, insomnia, slow [place] [address] PAIN MANAGEMENT CONSULTATION Name: DAVID DWYER Room: [facility]#: [id number] Admission: 06/01/19 Attend Phys: Daisha Menchaca MD Discharge: Date of : 70 Report #: [id number] LABORATORY DATA: 1. MRI of the lumbar spine dated 02/27/2019; L4-L5, no significant disk herniation. No significant central canal stenosis or neural foraminal narrowing. L5-S1 disk bulge measuring 1-2 mm in maximum AP dimension. No signs of central canal stenosis or neural foraminal narrowing. Distal cord is normal. Cauda equina nerve normal. Extra vertebral soft tissue are normal. 2. X-ray exam on 02/08/2019, lumbar spine views and oblique. Indication was low back pain. Findings; alignment is normal. No significant degenerative changes, no fractures or subluxations. PAIN CLINIC ASSESSMENT AND PQRS: 1. Osteoarthritis. The patient is not being treated for osteoarthritis or rheumatoid arthritis. 2. Height 5 feet 7 inches, weight 228 pounds, BMI is 35.8. 3. Vital signs: Blood pressure 138/72, heart rate 111, respiratory rate 18, room air saturation 94%, temperature 98.2. 4. Pain intensity, 8/10. 5. Fall history. The patient has not fallen in the last 3 months. 6. Blood thinner. The patient is not on a blood thinning medication. 7. Hypertension. The patient is not being treated for hypertension. 8. Opioids greater than 6 weeks. The patient receives medications from one physician. 9. functional assessment tool was 65/70. 10. Recreational drug use. The patient denies. 11. Tobacco. The patient denies. 12. Alcohol. The patient denies frequent use of alcoholic beverages. PHYSICAL EXAMINATION: GENERAL: The patient is a well-developed, well-nourished, somewhat obese, white female. Appears her stated age. She is alert and oriented x 3. Her affect is appropriate. Speech is fluent. HEENT: Normocephalic, atraumatic. Extraocular eye muscles intact. Sclerae nonicteric. Mucous membranes are moist. NECK: Without adenopathy or JVD. HEART: Regular rate. ABDOMEN: Nontender. EXTREMITIES: Upper extremity muscle strength judged to be +1 at the biceps bilaterally. The patient without significant scoliosis, kyphosis or lordosis. The patient has pain and discomfort with pain that is radiating down the posterior portion of her right buttocks into the L5-S1 dermatomal distribution. Complains of some pain and discomfort in the anterior portions of her thigh approximately L3 through L5 distribution. The patient notes some increased pain with left and right lateral bending. Lumbar extension caused some increased discomfort in the low back area. The patient complains of increased burning, radiating down into her posterior portion of her right leg when leaning forward. The patient complains of a cramping sensation in her legs. [facility] [address] [place] [address] PAIN MANAGEMENT CONSULTATION Name: REYMUNDODAVID Rasheed Room: [facility]#: [id number] Admission: 06/01/19 Attend Phys: Daisha Menchaca MD Discharge: Date of : 70 Report #: [id number] IMPRESSION: 1. Clinical complaints of pain in the L5-S1 dermatomal distribution on the right. 2. Diabetes. 3. Gastroparesis. 4. Depression. RECOMMENDATIONS: We discussed treatment options with the patient. At this juncture, she appears to be taking some antibiotics. She states that her blood sugars can rise somewhat. Possibility of an epidural steroid injection is an option in the future. We will consider a medication like gabapentin. The patient does have some problems with gastroparesis. May consider use of a nonsteroidal anti-inflammatory medication if this did not cause the patient's significant abdominal discomfort. Possibility of physical therapy as an option as well. We would like to thank you for letting us participate in her care. We hope she continues to improve. <ELECTRONICALLY SIGNED> By: Daisha Menchaca MD 06/09/19 0901 1455 0256N. Avtar Menchaca MD /PMT
== END ==
LOC: M.PC 03-22 08:10
DX: M54.5 Low back pain (principal); E11.9 Type 2 diabetes mellitus without complications; F32.9 Major depressive disorder, single episode, unspecified

== ENCOUNTER → 2019-06-22 | Outpatient (CLI) | payer OTHER ==
[2019-06-22 11:14] LABS: ALBUMIN 3.4 g/dL (3.4-5.0); ALKALINE PHOSPHATASE 121 U/L (46-116); ANION GAP 7 mmol/L (7-16); BUN 12 mg/dL (7-18); CHLORIDE 101 mmol/L (98-107); CHOLESTEROL 213 mg/dL (<200); CO2 29 mmol/L (21-32); GLUCOSE 344 mg/dL (70-99); HDL CHOLESTEROL 62 mg/dL (>40); LDL CHOLESTEROL 124 mg/dL (<100); POTASSIUM 4.2 mmol/L (3.5-5.1); SGOT 22 U/L (15-37); SGPT 36 U/L (30-65); SODIUM 137 mmol/L (136-145); TC:HDL 3.4 Ratio (Not establshd); TOTAL BILIRUBIN 0.2 mg/dL (<0.1-1.0); TOTAL PROTEIN 7.8 g/dL (6.4-8.2); TRIGLYCERIDE 138 mg/dL (<150); VLDL 28 mg/dL (<40)
[2019-06-22 11:33] LABS: SERUM ASSESSMENT Clear
[2019-06-23 02:07] LABS: GLYCOHEMOGLOBIN (HGB A1C) 10.6 % (4.8-5.6)
== END ==
LOC: M.LAB 10:39
PROVIDERS: Internal Medicine
DX: E10.9 Type 1 diabetes mellitus without complications (principal)

== ENCOUNTER → 2019-08-10 | Outpatient (CLI) | payer OTHER ==
[~2019-08-10] MED LIST changes: +NEURONTIN 400400 M1 PO; +NEURONTIN600 MG PO
--- NOTE | ~2019-08-10 | PAINCON ---
[facility] [address] [place] [address] PAIN MANAGEMENT CONSULTATION Name: REYMUNDODAVID Rasheed Room: [facility] Charla#: [id number] Admission: 08/10/19 Attend Phys: Daisha Menchaca MD Discharge: Date of : 70 Report #: [id number] THIS REPORT FOR: //name// cc: Jhonatan Montgomery Gregg R. DO ~ THIS REPORT FOR: //name// CC: Jhonatan Menchaca DATE OF SERVICE: 08/10/2019 PRIMARY CARE PHYSICIAN: Jhonatan Montgomery DO CHIEF COMPLAINT: Low back pain. HISTORY: The patient is a 49-year-old female who has been seen in the pain clinic because of low back discomfort. She notes that her pain continues to be problematic. She does have diabetes. She has been found to have an elevated A1c. She is contemplating a pancreatic transplant. She has had diabetes for 41 years. She has pain in the middle of her back. Notes that there is pain that radiates down into her calf and into her ankles. Standing can be problematic. Has some discomfort and pain radiating to the anterior thigh area. ALLERGIES: ROBITUSSIN, PENICILLIN, CHLORPHENIRAMINE, IODINE -- CONTRAST, SHELLFISH. CURRENT MEDICATIONS: Amitriptyline 10 mg 2 tablets at bedtime. Wellbutrin 100 mg b.i.d., Zyrtec 10 mg, EpiPen 0.3 mg injectable, gabapentin 300 mg 1 p.o. t.i.d., insulin 100 units subcutaneous, ondansetron 4 mg, dicyclomine 100 mg t.i.d., erythromycin has been used in the past, insulin pump with sliding scale. PAIN CLINIC ASSESSMENT AND PQRS: 1. The patient is not being treated for osteoarthritis or rheumatoid arthritis. 2. Height 5 feet 7 inches, weight 240 pounds, BMI 37.4. 3. Vital signs: Blood pressure 135/79, heart rate 106, respiratory rate 16, room air saturation 97%, temperature 97.5. 4. Pain intensity 8-9/10. 5. Fall history: The patient has not fallen in the last 3 months. 6. Blood thinner. The patient is not on a blood thinning medication. 7. Hypertension. The patient is not being treated for hypertension. 8. Opioids greater than 6 weeks. The patient received medication from one physician. 9. Functional assessment tool 67/70. 10. Recreational drug use. The patient denies. 11. Tobacco: [place] [address] PAIN MANAGEMENT CONSULTATION Name: DAVID DWYER Room: [facility]#: [id number] Admission: 08/10/19 Attend Phys: Daisha Menchaca MD Discharge: Date of : 70 Report #: [id number] 12. Alcohol. The patient denies frequent use of alcoholic beverages. PHYSICAL EXAMINATION: GENERAL: The patient is a well-developed, well-nourished white female. She appears her stated age. She is alert and oriented x 3. Her affect is appropriate. Speech is fluent. HEENT: Normocephalic, atraumatic. Extraocular eye muscles intact. Sclerae nonicteric. Mucous membranes are moist. NECK: Without adenopathy or JVD. HEART: Regular rate. ABDOMEN: Nontender. EXTREMITIES: Upper extremity, the patient has muscle strength of 5/5 for the major muscle groups. The patient has some pain and discomfort that is radiating down into her right buttocks in the L5-S1 dermatomal distribution. The patient also has some discomfort in the L3 through L5 distribution. The patient has some left as well as right discomfort with lateral bending. The patient complains of cramping sensation in her legs. IMPRESSION: 1. Clinical findings, which are not inconsistent with L5-S1 dermatomal pain. 2. Diabetes. 3. Gastroparesis. 4. Depression. RECOMMENDATIONS: We discussed treatment options with the patient. At this point, we will consider possibility of an epidural steroid injection. Risks and benefits of the procedure were discussed. We will continue on a conservative approach. We will continue with amitriptyline 10 mg at bedtime. She will take 2 tablets. She will also continue with gabapentin 400 mg t.i.d. A script for the gabapentin 600 mg 1 p.o. t.i.d. have been provided. The patient will also continue with amitriptyline 10 mg 1 p.o. at bedtime. We will increase the patient's gabapentin from 400 mg to 600 mg and note its efficacy. We would like to thank you for letting us participate in her care. We hope she continues to improve. By: [id number]. Avtar Menchaca MD /KT
== END ==
LOC: M.PC 07-25 08:10
DX: M54.5 Low back pain (principal); E11.43 Type 2 diabetes mellitus with diabetic autonomic (poly)neuropathy; K31.84 Gastroparesis; F32.9 Major depressive disorder, single episode, unspecified; Z79.899 Other long term (current) drug therapy; Z88.0 Allergy status to penicillin; Z91.041 Radiographic dye allergy status; Z88.8 Allergy status to other drugs, medicaments and biological substances; Z91.013 Allergy to seafood

== ENCOUNTER → 2019-09-07 | Outpatient (CLI) | payer OTHER ==
--- NOTE | 2019-09-21 15:59 | PAINCON ---
[address] [address] PAIN MANAGEMENT CONSULTATION Name: DAVID DWYER Room: [facility] Charla#: [id number] Admission: 09/07/19 Attend Phys: Daisha Mencahca MD Discharge: Date of : 70 Report #: [id number] THIS REPORT FOR: //name// cc: Jhonatan Montgomery Gregg R. DO THIS REPORT FOR: //name// CC: Jhonatan Romo DATE OF SERVICE: 09/07/2019 CHIEF COMPLAINT: Low back pain. HISTORY: The patient is a 49-year-old female who has been seen in the pain clinic because of low back pain. She does have diabetes. She is contemplating pancreatic transplant. She has had diabetes for 41 years. She is also having pain in the mid portion of her back. Pain continues to radiate down into her calf and into her ankles. She has pain in the mid portion of her back down to the top of her feet. She feels that she is somewhat dizzy when she is getting up and walking. She rates her pain as a 7/10. ALLERGIES: ROBITUSSIN, PENICILLIN, CHLORPHENIRAMINE, IODINE/CONTRAST, AND SHELLFISH. CURRENT MEDICATIONS: The patient was taking amitriptyline 2 tablets at bedtime, Wellbutrin 100 mg b.i.d., Zyrtec 10 mg, EpiPen 0.3 mg injectable, gabapentin 300 mg one p.o. t.i.d., insulin 100 units subcutaneous, ondansetron 4 mg, dicyclomine 100 mg t.i.d., and insulin pump with sliding scale. PAIN CLINIC ASSESSMENT/PQRS: 1. The patient is not being treated for osteoarthritis or rheumatoid arthritis. 2. Height 5 feet 7 inches, weight 240 pounds, BMI is 37.4. 3. Vital signs: Blood pressure 136/80, heart rate 105, respiratory rate 18, room air saturation 98%, temperature 97.6. 4. Pain intensity 09/21. 5. Fall history: The patient has not fallen in the last 3 months, but does feel somewhat dizzy. 6. Blood thinner. The patient is not on a blood thinning medication. 7. Hypertension. The patient is not being treated for hypertension. 8. Functional assessment tool 67/70. 9. Opioids. The patient is not receiving opioid medication on a regular basis. 10. Tobacco: The patient denies use of tobacco. 11. Alcohol: The patient denies frequent [place] [address] PAIN MANAGEMENT CONSULTATION Name: DAVID DWYER Room: [facility]#: [id number] Admission: 09/07/19 Attend Phys: Daisha Menchaca MD Discharge: Date of : 70 Report #: [id number] PHYSICAL EXAMINATION: GENERAL: The patient is a well-developed, well-nourished white female. Appears her stated age. She is alert and oriented x 3. Her affect is appropriate. Speech is fluent. The patient is wearing a mask. HEENT: Normocephalic, atraumatic. Extraocular eye muscles intact. NECK: Without adenopathy or JVD. HEART: Regular. ABDOMEN: Nontender. EXTREMITIES: Upper extremity muscle strength judged to be 5/5 for the major muscle groups in the upper extremity. The patient has some pain and discomfort radiating down into her right buttocks in the L5-S1 dermatomal distribution. The patient also has some discomfort in the L3 through L5 distribution. Increased pain with left and right lateral bending. She has had some cramping sensation in her legs. IMPRESSION: 1. Clinical findings of L5-S1 dermatomal pain. 2. Diabetes. 3. Gastroparesis. 4. Depression. RECOMMENDATIONS: We discussed treatment options with the patient. The patient has noticed some concerns. She has been feeling somewhat dizzy. She notes this after she gets up and starts walking. She does have some mid back pain and pain radiating down to the top of her feet. She will stop the gabapentin for 1 week. She will also stop the Elavil. We will try to see whether or not one of these medications is causing the problem. She will return in the near future. She will call us if she has any concerns prior to return to the Pain Clinic. Hopefully, her problems with dizziness after getting up and walking will become less problematic. We would like to thank you for letting us participate in her care. We hope she continues to improve. <ELECTRONICALLY SIGNED> By: Daisha Menchaca MD 09/21/19 1559 [id number]. Avtar Menchaca MD /KT
== END ==
LOC: M.PC 04:48
PROVIDERS: ATTEND Anesthesiology Pain Medicine
DX: M54.5 Low back pain (principal); E11.9 Type 2 diabetes mellitus without complications; K31.84 Gastroparesis; F32.9 Major depressive disorder, single episode, unspecified; Z79.899 Other long term (current) drug therapy

== ENCOUNTER → 2019-11-28 | Outpatient (CLI) | payer OTHER ==
[~2019-11-28] MED LIST changes: +LYRICA100 MG PO
--- NOTE | 2019-11-29 09:50 | PAINCON ---
[facility] [address] [place] [address] PAIN MANAGEMENT CONSULTATION Name: DAVID DWYER Room: [facility] Charla#: [id number] Admission: 11/28/19 Attend Phys: Daisha Menchcaa MD Discharge: Date of : 70 Report #: [id number] THIS REPORT FOR: //name// cc: Jhonatan Montgomery Gregg R. DO ~ THIS REPORT FOR: //name// CC: Jhonatan Menchaca DATE OF SERVICE: 11/28/2019 CHIEF COMPLAINT: Pain from the mid portion of the back down to the ankles. HISTORY: The patient is a 49-year-old female who has been referred to the Pain Clinic for evaluation. She complains of pain from the lower portion of her back down into her legs. She describes it as constant. She has used the Lyrica. She is not experiencing any side effects. She is not having the desired effect she would like. Pain continues to be problematic. She finds that the amitriptyline is helpful with getting a better night sleep. She rates her pain as a 6/10. She is still contemplating a pancreas transplant. She has had diabetes for 41 years. ALLERGIES: ROBITUSSIN, PENICILLIN, CHLORPHENIRAMINE, IODINE/CONTRAST, AND SHELLFISH. CURRENT MEDICATIONS: The patient takes one to two amitriptyline at bedtime. Wellbutrin 100 mg b.i.d., Zyrtec 10 mg, EpiPen 0.3 mg injectable, Lyrica 150 mg daily, insulin 100 units subcutaneous, ondansetron 4 mg, dicyclomine 100 mg t.i.d., and insulin pump with sliding scale. PAIN CLINIC ASSESSMENT AND PQRS: 1. The patient is not being treated for osteoarthritis or rheumatoid arthritis. 2. Height 5 feet 7 inches, weight 243 pounds, BMI is 37. 3. Vital Signs: Blood pressure 145/72, heart rate 100, respiratory rate 16, room air saturation 95%, and temperature 96.3. 4. Pain intensity 08/22. 5. Fall history: The patient has not fallen in the last 3 months. Does feel somewhat dizzy on occasion. 6. Blood thinner. The patient is not on a blood thinning medication. 7. Hypertension. The patient is not being treated for hypertension. 8. Opioids. The patient is not receiving opioid medication on a regular basis. 9. Functional assessment tool, . 10. Tobacco: The patient denies use of tobacco. 11. Alcohol. The patient denies frequent [place] [address] PAIN MANAGEMENT CONSULTATION Name: DAVID DWYER Room: [facility]#: [id number] Admission: 11/28/19 Attend Phys: Daisha Menchaca MD Discharge: Date of : 70 Report #: [id number] PHYSICAL EXAMINATION: GENERAL: The patient is a well-developed, well-nourished, somewhat obese white female, appears her stated age. She is alert and oriented x 3. Her affect is appropriate. Speech is fluent. HEENT: Normocephalic, atraumatic. Extraocular eye muscles intact. The patient is wearing a facial covering. NECK: Without adenopathy. HEART: Regular rate. ABDOMEN: Protuberant. EXTREMITIES: Upper extremity muscle strength judged to be 5/5 for the major muscle groups in the upper extremity. The patient does complain of some pain and discomfort in her right buttocks and pain down in the L5-S1 dermatomal distribution. The patient notes some discomfort in the L3 through L5 lumbar areas. Complains of some cramping in her legs. IMPRESSION: 1. Clinical findings of L5-S1 dermatomal changes. 2. Diabetes. 3. Gastroparesis. 4. Depression. RECOMMENDATIONS: We discussed treatment options with the patient. Again, we discussed treatment options with the patient. She is using Lyrica. We initially started medication at 100 mg per day. We then increased it to 150 mg per day. We will increase it to 100 mg b.i.d. The upper limit is about 450. We will see if the patient notes benefit from this. She feels that the Elavil medication is helpful. When she takes it at night, she is able to get a better night sleep. She is not having significant problems with hangover. If she takes it too late at night, she does note some residual in the morning. Overall, she feels that one tablet to 2 tablets is okay. She refrains from using it when she does not feel the need. A script for her medications of 100 mg p.o. b.i.d. has been sent to her pharmacy. She will call us if she has any concerns. We would like to thank you for letting us participate in her care. We hope she continues to improve. <ELECTRONICALLY SIGNED> By: Daisha Menchaca MD 11/29/19 0950 [id number]. Avtar Menchaca MD /jean claude
== END ==
LOC: M.PC 11:16
PROVIDERS: ATTEND Anesthesiology Pain Medicine
DX: M25.571 Pain in right ankle and joints of right foot (principal); M25.572 Pain in left ankle and joints of left foot; M54.5 Low back pain

== ENCOUNTER 2019-12-05 05:12 | Emergency (ER) | payer OTHER ==
[~2019-12-05] VITALS: Ht 170.2 cm; Wt 108.9 kg
[2019-12-05] MEDS ORDERED: LORCET 5-325 M1 EACH PO (07:14)
[2019-12-05] MEDS ORDERED: MEDROLDOSEPACK PO (07:14)
[2019-12-05] MEDS ORDERED: FLEXERIL PO (07:14)
[2019-12-05 07:33] VITALS: BP 154/77
== END 2019-12-05 07:33 | disposition home or self-care (01) ==
LOC: M.ERS 05:12
DX: M54.12 Radiculopathy, cervical region (principal); M25.512 Pain in left shoulder; M79.602 Pain in left arm; E11.9 Type 2 diabetes mellitus without complications; Z79.899 Other long term (current) drug therapy; Z79.4 Long term (current) use of insulin; Z88.0 Allergy status to penicillin; Z88.8 Allergy status to other drugs, medicaments and biological substances; Z91.013 Allergy to seafood; Z91.041 Radiographic dye allergy status; Z90.49 Acquired absence of other specified parts of digestive tract

== ENCOUNTER → 2019-12-13 | Outpatient (CLI) | payer OTHER ==
[~2019-12-13] MED LIST changes: +FLEXERIL PO; +LORCET 5-325 M1 EACH PO
== END ==
LOC: M.MRI 13:18
PROVIDERS: ATTEND Family Medicine
DX: M47.22 Other spondylosis with radiculopathy, cervical region (principal); M48.02 Spinal stenosis, cervical region; M50.122 Cervical disc disorder at C5-C6 level with radiculopathy

== ENCOUNTER → 2019-12-28 | Outpatient (CLI) | payer OTHER ==
[~2019-12-28] MED LIST changes: +HYDROCODONE-AP1 EA11 PO
--- NOTE | 2020-01-16 14:36 | PAINCON ---
[facility] [address] [place] [address] PAIN MANAGEMENT CONSULTATION Name: DAVID DWYER [id number] Admission: 12/28/19 Attend Phys: Daisha Menchaca MD Discharge: Date of : 70 Report #: [id number] THIS REPORT FOR: //name// cc: Jhonatan Montgomery Gregg R. DO ~ CC: Albert Menchaca DATE OF SERVICE: 12/28/2019 CHIEF COMPLAINT: Left neck and shoulder pain that continues to radiate down into the fingertips. HISTORY: The patient is a 49-year-old female who has been seen in the pain clinic because of cervical pain and discomfort. She continues to have pain, which is problematic. It involves her left neck and shoulder area. Pain continues to radiate down into her fingers. She continues to find her pain is still quite problematic. She rates it as 7-8/10. She feels that the hydrocodone is helpful. She is not sure that the Flexeril medication is very beneficial. She continues with Lyrica. She is still having difficulty sleeping. She finds that the Elavil medication is helpful and helps her get a better night sleep. As you may recall, she is contemplating a pancreas transplant in the future. She has had diabetes for 41 years. ALLERGIES: ROBITUSSIN, PENICILLIN, CHLORPHENIRAMINE, IODINE/CONTRAST MEDIA, SHELLFISH. CURRENT MEDICATIONS: Amitriptyline 10 mg 2 tablets at bedtime, Wellbutrin 100 mg b.i.d., Zyrtec 10 mg, EpiPen, Lyrica 150 mg daily, insulin 100 units subcutaneous, ondansetron 4 mg, dicyclomine 100 mg t.i.d., insulin pump sliding scale, hydrocodone 7.5 mg one p.o. q. 6 hours p.r.n. PAIN CLINIC ASSESSMENT/PQRS: 1. The patient is not being treated for osteoarthritis or rheumatoid arthritis. 2. Height 5 feet 6 inches, weight 239 pounds, BMI is 37. 3. Vital signs: Blood pressure 127/69, heart rate 111, respiratory rate 16, room air saturation 95%, temperature 98.3. 4. Pain intensity 7-8/10. 5. Fall history: The patient has not fallen in the last 3 months. 6. Blood thinner: The patient is not on a blood thinning medication. 7. Hypertension: The patient is not being treated for hypertension. 8. Opioids: [facility] 9. Functional assessment tool 67/70. 10. Tobacco: The patient denies use of tobacco. 11. Alcohol: The patient [place] [address] PAIN MANAGEMENT CONSULTATION Name: DAVID DWYER Room: [facility]#: [id number] Admission: 12/28/19 Attend Phys: Daisha Menchaca MD Discharge: Date of : 70 Report #: [id number] 12. Recreational drug use: The patient denies use of recreational drugs. PHYSICAL EXAMINATION: GENERAL: The patient is a well-developed, well-nourished, somewhat obese white female, appears her stated age. She is alert and oriented x 3. Her affect is appropriate. Speech is fluent. HEENT: Normocephalic, atraumatic. Extraocular eye muscles intact. The patient is wearing facial covering. NECK: Without adenopathy. The patient notes some pain and discomfort in her neck with pain that radiates down in the left neck area into the left shoulder and down involving her fingers. HEART: Regular rate. ABDOMEN: Nontender. EXTREMITIES: Upper extremity muscle strength judged to be 5/5 for the major muscle groups in the upper extremity. The patient has some pain and discomfort in her right buttocks and pain that radiates down the L5-S1 dermatomal distribution. The patient has experienced discomfort in the L3 through L5 lumbar areas. Complains of some cramping in her legs. IMPRESSION: 1. Cervical radiculopathy. 2. Clinical findings of L5-S1 dermatomal changes. 3. Diabetes. 4. Gastroparesis. 5. Depression. RECOMMENDATIONS: We discussed treatment options with the patient. At this juncture, we will continue with her medications of hydrocodone 7.5 mg one p.o. 4-6 hours p.r.n. The patient will also continue with the Lyrica 150 mg. She will continue with Elavil. She finds that that medication is helpful with sleep and can be helpful with nerve pain. Scripts for her medications of hydrocodone, Flexeril and amitriptyline have been rewritten. The patient will follow up in the near future. We would like to thank you for letting us participate in her care. We hope she continues to improve. <ELECTRONICALLY SIGNED> By: Daisha Menchaca MD 01/16/20 1436 [id number]. Avtar Menchaca MD /[facility]
== END ==
LOC: M.PC 08:20
PROVIDERS: ATTEND Anesthesiology Pain Medicine
DX: M50.122 Cervical disc disorder at C5-C6 level with radiculopathy (principal)

== ENCOUNTER → 2020-08-29 | Outpatient (CLI) | payer OTHER | LOC: M.PC 10:43 | PROVIDERS: ATTEND Anesthesiology Pain Medicine | DX: M54.16 Radiculopathy, lumbar region (principal); M54.12 Radiculopathy, cervical region; E11.9 Type 2 diabetes mellitus without complications; K31.84 Gastroparesis; F32.9 Major depressive disorder, single episode, unspecified; Z79.4 Long term (current) use of insulin; Z79.899 Other long term (current) drug therapy ==

== ENCOUNTER → 2020-09-26 | Outpatient (CLI) | payer OTHER ==
[~2020-09-26] MED LIST changes: +IMITREX 50 MG T50 MG PO; +MACRODANTIN100 MG PO
== END | disposition home or self-care (01) ==
LOC: M.PC 12:49
PROVIDERS: ATTEND Anesthesiology Pain Medicine
DX: M54.16 Radiculopathy, lumbar region (principal); M54.12 Radiculopathy, cervical region; G89.29 Other chronic pain; E11.9 Type 2 diabetes mellitus without complications; F32.9 Major depressive disorder, single episode, unspecified; Z98.890 Other specified postprocedural states; Z79.899 Other long term (current) drug therapy; Z90.49 Acquired absence of other specified parts of digestive tract; Z90.711 Acquired absence of uterus with remaining cervical stump; Z91.041 Radiographic dye allergy status; Z88.0 Allergy status to penicillin; Z88.8 Allergy status to other drugs, medicaments and biological substances

== ENCOUNTER → 2020-10-29 | Outpatient (CLI) | payer OTHER ==
[~2020-10-29] MED LIST changes: +AMITRIPTYLINE H10 M1 PO
== END | disposition home or self-care (01) ==
LOC: M.PC 08:40
PROVIDERS: ATTEND Anesthesiology Pain Medicine
DX: M54.16 Radiculopathy, lumbar region (principal); G89.29 Other chronic pain; M54.12 Radiculopathy, cervical region; E11.9 Type 2 diabetes mellitus without complications; F32.9 Major depressive disorder, single episode, unspecified; Z98.890 Other specified postprocedural states; Z79.899 Other long term (current) drug therapy; Z90.49 Acquired absence of other specified parts of digestive tract; Z90.710 Acquired absence of both cervix and uterus; Z88.0 Allergy status to penicillin; Z91.041 Radiographic dye allergy status; Z88.8 Allergy status to other drugs, medicaments and biological substances

== ENCOUNTER 2020-11-01 20:38 | Emergency (ER) | payer OTHER ==
[~2020-11-01] VITALS: Ht 170.2 cm; Wt 108.4 kg
[2020-11-01 22:19] VITALS: BP 140/81
== END 2020-11-01 22:19 | disposition home or self-care (01) ==
LOC: M.ERS 20:38
DX: U07.1 COVID-19 (principal); E11.43 Type 2 diabetes mellitus with diabetic autonomic (poly)neuropathy; K31.84 Gastroparesis; F32.9 Major depressive disorder, single episode, unspecified; Z90.49 Acquired absence of other specified parts of digestive tract; Z90.711 Acquired absence of uterus with remaining cervical stump; Z79.4 Long term (current) use of insulin; Z79.899 Other long term (current) drug therapy; Z91.013 Allergy to seafood; Z88.8 Allergy status to other drugs, medicaments and biological substances; Z88.0 Allergy status to penicillin; Z91.041 Radiographic dye allergy status

== ENCOUNTER → 2020-11-27 | Outpatient (CLI) | payer OTHER ==
[2020-11-27 16:50] LABS: ABSOLUTE BASOPHILS 0.1 thou/uL (0.0-0.2); ABSOLUTE EOSINOPHILS 0.1 thou/uL (0.0-0.7); ABSOLUTE LYMPHOCYTES 2.1 thou/uL (0.8-5.3); ABSOLUTE MONOCYTES 0.6 thou/uL (0.0-1.2); ABSOLUTE NEUTROPHILS 4.4 thou/uL (1.6-8.1); BASOPHILS 0.7 %; HEMATOCRIT 39.7 % (37.0-47.0); HEMOGLOBIN 13.1 gm/dL (12.0-15.0); LYMPHOCYTES 28.8 %; MCH 30.3 pg (26.0-34.0); MCV 91.9 fL (80.0-100.0); MPV 9.1 fl. (7.2-11.1); NUCLEATED RBCS 0 /100WBC; PLATELET COUNT* 302 thou/uL (150-400); POLYS 60.5 %; RBC 4.32 mil/uL (4.20-5.00); RDW-CV 14.2 % (10.5-14.5); WBC 7.3 thou/uL (4.0-11.0)
[2020-11-27 17:05] LABS: ALBUMIN 3.4 g/dL (3.4-5.0); CALCIUM 8.7 mg/dL (8.5-10.1); POTASSIUM 3.9 mmol/L (3.5-5.1); TOTAL BILIRUBIN 0.5 mg/dL (<0.1-1.0); TOTAL PROTEIN 7.7 g/dL (6.4-8.2)
[2020-11-29 02:06] LABS: GLYCOHEMOGLOBIN (HGB A1C) 12.7 % (4.8-5.6)
== END ==
LOC: M.LAB 16:15
PROVIDERS: ATTEND Family Medicine
DX: R91.8 Other nonspecific abnormal finding of lung field (principal)

== ENCOUNTER → 2020-12-05 | Outpatient (CLI) | payer OTHER | LOC: M.ULTRA 12-02 09:30 | PROVIDERS: ATTEND Family Medicine | DX: R22.1 Localized swelling, mass and lump, neck (principal) ==

== ENCOUNTER 2021-03-04 16:02 | Emergency (ER) | payer OTHER ==
[~2021-03-04] VITALS: Ht 170.2 cm; Wt 104.3 kg
[2021-03-04] MEDS ORDERED: FLONASE 0.05%50 MCG NARES (16:18)
[2021-03-04 16:51] LABS: INFLUENZA A ANTIGEN Negative (Negative); INFLUENZA B ANTIGEN Negative (Negative)
[2021-03-04] MEDS ORDERED: TESSALON PERLE100 MG PO (16:59)
[2021-03-04] MEDS ORDERED: MEDROLDOSEPACK PO (16:59)
[2021-03-04 17:06] VITALS: BP 141/70
== END 2021-03-04 17:06 | disposition home or self-care (01) ==
LOC: M.ERS 16:02
PROVIDERS: Physician Assistant
DX: J06.9 Acute upper respiratory infection, unspecified (principal); Z20.822 Contact with and (suspected) exposure to COVID-19; H92.09 Otalgia, unspecified ear; E11.9 Type 2 diabetes mellitus without complications; Z90.49 Acquired absence of other specified parts of digestive tract; Z90.710 Acquired absence of both cervix and uterus; Z79.899 Other long term (current) drug therapy; Z79.4 Long term (current) use of insulin; Z88.8 Allergy status to other drugs, medicaments and biological substances; Z88.0 Allergy status to penicillin; Z91.041 Radiographic dye allergy status